=== PATIENT | male | born 1995 | race Two or more races ===

== ENCOUNTER 2020-02-03 18:03 | Emergency (ER) | payer SELFPAY ==
[~2020-02-03] VITALS: Ht 180.3 cm; Wt 93.0 kg
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
[2020-02-03] MEDS ORDERED: Ketorolac 30mg Inj IM ONE (18:30)
[2020-02-03] MEDS ORDERED: Methocarbamol 750mg tab ORAL ONE (18:30)
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
--- NOTE | 2020-02-03 18:47 | NUR ---
ED Nurse Note: X ray at bed side
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
[2020-02-03] MEDS ORDERED: ACETAMINOPHEN-1 EAC1 ORAL (19:23)
[2020-02-03] MEDS ORDERED: ROBAXIN-500MG ORAL (19:23)
[2020-02-03] MEDS ORDERED: IBU800 MG PO (19:23)
[2020-02-03 19:50] VITALS: BP 140/84
--- NOTE | 2020-02-03 19:50 | NUR ---
ED Nurse Note: Pt cleared by health care Provider for discharge. DC instructions/prescription was given and explained to pt and verbalized understanding of teachings. Instructed pt to follow up with primary care physican within one week. All medical devices such as ID band removed. Pt is AAO x4, ambulatory and left with all personal belongings. Spint applied; no discoloration noted, cap refill less than 3 secs, able to move toes without discomfort. RICE taught with pt understanding and repeat verbalization by pt. Provided pt with crutches.
== END 2020-02-03 19:50 | disposition home or self-care (01) ==
LOC: EMR 18:23
DX: S82.54XA Nondisplaced fracture of medial malleolus of right tibia, initial encounter for closed fracture (principal); S83.91XA Sprain of unspecified site of right knee, initial encounter; V29.9XXA Motorcycle rider (driver) (passenger) injured in unspecified traffic accident, initial encounter; Y92.9 Unspecified place or not applicable
CPT/HCPCS: 29515; 73562; 73610; 96372; 99284; J1885